=== PATIENT | male | born 1940 | race Caucasian/White ===

== ENCOUNTER → 2017-08-01 | Day surgery (SDC) | payer OTHER, MEDICARE ==
[~2017-08-01] VITALS: Ht 167.6 cm; Wt 81.6 kg
[~2017-08-01] MED LIST: AMLODIPINE BESYL5 M1 PO; ASPIRIN EC81 M1 PO; BUPROPION HCL150 M4 PO; MULTIVITAMINS1 EAC9 PO; VITAMIN C1000 M4 PO; ZOCOR20 M1 PO
--- NOTE | 2017-08-01 15:31 | Operative Report ---
Operative/Inv Procedure Report Surgery Date: 08/01/17 Name of Procedure: Umbilical hernia repair with primary closure Pre-Operative Diagnosis: Umbilical hernia Post-Operative Diagnosis: Same Estimated Blood Loss: scant Surgeon/Pantomimist: Dutch OCAMPO,Severino Go/Bill WILSON Anesthesia: laryngeal mask airway Implants: None Operative Indication: 76-year-old male with long-standing growing umbilical hernia. He presents for elective repair Operative/Procedure Note Note: After informed consent patient brought to the operating room and laid supine. Gen. anesthesia obtained and the abdomen was prepped and draped. The periumbilical tissues were infiltrated with a cocktail local anesthesia. A curvilinear incision was made sharply. We dissected down to the umbilical stalk and circumferentially dissected it bluntly. The stock was then transected with cautery, thus exposing the defect. The hernia sac was circumferentially dissected down to level of fascia and incised the neck with cautery. Contents were then reduced. The fascial edges were then trimmed with cautery and removed. The resultant defect was 2 cm. I elected to close it primarily with interrupted 0 Maxon sutures. Wound was irrigated with saline. The umbilical stalk re-created with 3-0 Vicryl. Incision was then closed in layers of Vicryl. Sterile dressings were applied. Sponge and needle counts are correct CC: Gus OCAMPO,Leanna
== END ==
LOC: STS 02:57
DX: K42.9 Umbilical hernia without obstruction or gangrene (principal); I10 Essential (primary) hypertension; Z87.891 Personal history of nicotine dependence
CPT/HCPCS: 36415; J0690